=== PATIENT | female | born 1990 | race Caucasian/White ===

== ENCOUNTER 2016-08-16 23:08 | Emergency (ER) | payer SELFPAY ==
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
[2016-08-16 23:32] VITALS: BP 119/67; PULSE 89; TEMP 97.4; BMI 31.2
[2016-08-16] MEDS ORDERED: IBUPROFEN 400 MG TABLET (FP) PO ONE (23:51)
[2016-08-16] MEDS: IBUPROFEN 400 MG TABLET (FP) PO ONE (23:54)
== END 2016-08-17 01:14 | disposition home or self-care (01) ==
LOC: JER 23:08
DX: M54.5 Low back pain (principal); Y04.2XXA Assault by strike against or bumped into by another person, initial encounter; Y93.89 Activity, other specified; Y92.89 Other specified places as the place of occurrence of the external cause; Y07.01 Husband, perpetrator of maltreatment and neglect
CPT/HCPCS: 70450-TC; 72125-TC; 73562-TC-LT; 84703; 99282-25